=== PATIENT | female | born 1980 | race African-American/Black ===

== ENCOUNTER 2020-12-24 10:40 | Emergency (ER) | payer OTHER ==
[2020-12-24 10:48] VITALS: BP 132/81; PULSE 77; TEMP 98.4; BMI 37.4
[2020-12-24] MEDS ORDERED: KETOROLAC TROMETHAMINE 30 MG/1 ML VIAL IM ONE (11:14)
[2020-12-24] MEDS ORDERED: KETOROLAC TROMETHAMINE 30 MG/1 ML VIAL ONE (11:22)
== END 2020-12-24 11:39 | disposition home or self-care (01) ==
LOC: JERFT 10:40
PROC: 3E0233Z Introduction of Anti-inflammatory into Muscle, Percutaneous Approach (ICD-10-PCS; principal; 2020-12-24)
DX: M25.561 Pain in right knee (principal)
CPT/HCPCS: 99284-25

== ENCOUNTER 2021-08-18 12:40 | Emergency (ER) | payer OTHER ==
[2021-08-18 14:22] VITALS: BP 116/53; PULSE 68; TEMP 98; BMI 33.3
[2021-08-18] MEDS ORDERED: IBUPROFEN 600 MG TABLET (FP) PO ONE (15:15)
== END 2021-08-18 17:48 | disposition home or self-care (01) ==
LOC: JER 12:40
DX: U07.1 COVID-19 (principal)
CPT/HCPCS: 71046-TC-FY; 87804; 87807; 99284-25; C9803; U0003; U0005